=== PATIENT | female | born 1980 ===

== ENCOUNTER 2024-10-08 09:30 | Emergency (ER) | payer SELFPAY ==
[~2024-10-08] VITALS: Ht 160 cm; Wt 70.5 kg
[2024-10-08 09:40] VITALS: TEMP 98.2
[2024-10-08 10:08] LABS: BASOPHILS % (AUTO) 1.3 % (0.0-2.0); HEMATOCRIT 28.1 % (36-46); HEMOGLOBIN 8.7 g/dL (12.0-16.0); LYMPHOCYTES # (AUTO) 1.3 K/uL (1.0-4.8); LYMPHOCYTES % (AUTO) 20.8 % (22.0-44.0); MEAN CORPUSCULAR HEMOGLOBIN 23.4 pg (26.0-34.0); MEAN CORPUSCULAR HGB CONC 30.8 G/dL (31.0-37.0); MEAN CORPUSCULAR VOLUME 76 fL (80-100); MONOCYTES # (AUTO) 0.4 K/uL (0.1-1.0); MONOCYTES % (AUTO) 6.6 % (2.0-9.0); NEUTROPHILS # (AUTO) 4.4 K/uL (1.8-7.7); NEUTROPHILS % (AUTO) 67.3 % (40.0-70.0); PLATELET COUNT (AUTO) 342 K/uL (150-450); RED CELL DISTRIBUTION WIDTH 17.1 % (11.5-14.5); WHITE BLOOD COUNT (AUTO) 6.5 K/uL (4.5-11.0)
[2024-10-08 10:14] LABS: ANION GAP 5 mmol/L (8-16); CALCIUM, TOTAL 8.6 mg/dL (8.8-10.5); CARBON DIOXIDE 28 mmol/L (22-29); CHLORIDE 103 mmol/L (98-107); CREATININE 0.68 mg/dL (0.60-1.30); GLOMERULAR FILTR. RATE CALC > 60 mL/min (>60); GLUCOSE,RANDOM 118 mg/dL (70-110); POTASSIUM 3.8 mmol/L (3.5-5.1); SODIUM SERUM 136 mmol/L (136-145); UREA NITROGEN, BLOOD 9 mg/dL (7-18)
[2024-10-08] MEDS: PROCHLORPERAZINE EDISYLATE 5 MG/ML 2 ML VIAL IVP ONE (10:20)
[2024-10-08] MEDS: DiphenhydrAMINE HCL 50 MG/ML VIAL IVP ONE (10:21)
[2024-10-08] MEDS: SODIUM CHLORIDE 0.9% 1,000 ML IV ONE (10:21)
[2024-10-08 10:24] LABS: TROPONIN I-HIGH SENSITIVITY Less Than 4 ng/L (<51)
[2024-10-08 11:01] LABS: RBC MORPHOLOGY COMMENT ABNORMAL RBC MORPH
[2024-10-08 12:00] VITALS: BP 147/89; PULSE 80; RESP 16; O2SAT 99
[2024-10-08 12:06] LABS: APPEARANCE,URINE CLEAR (CLEAR); BILIRUBIN,URINE NEGATIVE (NEGATIVE); COLOR,URINE COLORLESS (YELLOW); GLUCOSE, URINE (UA) NEGATIVE (NEGATIVE); KETONES,URINE NEGATIVE (NEGATIVE); LEUKOCYTE ESTERASE ,URINE NEGATIVE (NEGATIVE); NITRATE,URINE NEGATIVE (NEGATIVE); OCCULT BLOOD,URINE NEGATIVE (NEGATIVE); PROTEIN,URINE NEGATIVE (NEGATIVE); SPECIFIC GRAVITIY, URINE 1.007 (1.003-1.030); UROBILINOGEN,URINE <=1.0 mg/dL (<=1.0)
[2024-10-08 12:12] LABS: BACTERIA,URINE None Seen /HPF (None Seen); RBC,URINE None Seen /HPF (0-2); WBC,URINE None Seen /HPF (0-5)
== END 2024-10-08 12:10 | disposition home or self-care (01) ==
LOC: EMS 09:30
DX: R07.2 Precordial pain (principal); G43.909 Migraine, unspecified, not intractable, without status migrainosus; R10.30 Lower abdominal pain, unspecified; D64.9 Anemia, unspecified
CPT/HCPCS: 99285; 96374; 71045; 96361; 96375; 80048; 81001; 84484; 84703; 85025; 36415; 93005; J1200; J0780; J7030

== ENCOUNTER 2024-11-27 18:45 | Emergency (ER) | payer SELFPAY ==
[~2024-11-27] VITALS: Ht 157.5 cm; Wt 72.7 kg
[2024-11-27 18:54] VITALS: BP 128/62; PULSE 69; RESP 18; TEMP 97.6; O2SAT 100
[2024-11-27] MEDS: AMOX TR/POT CLAV 875 MG/125 MG TABLET PO ONE (22:59)
[2024-11-27] MEDS: IBUPROFEN 600 MG TABLET PO ONE (22:59)
[2024-11-27] MEDS ORDERED: AMOX-457 PO (23:05)
[2024-11-27] MEDS ORDERED: ACET-3385 PO (23:05)
[2024-11-27] MEDS ORDERED: IBUP-1492 PO (23:05)
== END 2024-11-27 23:11 | disposition home or self-care (01) ==
LOC: EMS 18:45
DX: K08.89 Other specified disorders of teeth and supporting structures (principal)
CPT/HCPCS: 99283

== ENCOUNTER 2024-11-30 20:53 | Emergency (ER) | payer SELFPAY ==
[~2024-11-30] VITALS: Ht 157.5 cm; Wt 72.7 kg
[~2024-11-30 20:53] MED LIST: ACET-3385 PO; AMOX-457 PO; IBUP-1492 PO
[2024-11-30 21:02] VITALS: BP 153/68; PULSE 67; RESP 16; TEMP 98.6; O2SAT 100
[2024-11-30] MEDS ORDERED: PENI500T2 PO (21:47)
[2024-11-30] MEDS: IBUPROFEN 600 MG TABLET PO ONE (21:53)
[2024-11-30] MEDS: AMOX TR/POT CLAV 875 MG/125 MG TABLET PO ONE (21:53)
== END 2024-11-30 21:56 | disposition home or self-care (01) ==
LOC: EMS 20:53
DX: K04.7 Periapical abscess without sinus (principal)
CPT/HCPCS: 99283